=== PATIENT | male | born 1975 | race Caucasian/White ===

== ENCOUNTER 2024-08-06 16:20 | Emergency (ER) | payer OTHER, MEDICAID ==
[~2024-08-06] VITALS: Ht 177.8 cm; Wt 95.3 kg
[2024-08-06 16:22] VITALS: BP_SYST 129; PULSE 97; RESP 16; TEMP 97.8; O2SAT 97
[2024-08-06 16:30] VITALS: TEMP 97.8
[2024-08-06] MEDS: KETOROLAC TROMETHAMINE 30 MG VIAL IM ONE (17:30)
[2024-08-06] MEDS ORDERED: DICL75TA5 PO (19:09)
[2024-08-06] MEDS ORDERED: LIDO1ADH22 TP (19:10)
[2024-08-06 19:17] VITALS: BP_SYST 130; PULSE 90; RESP 16; O2SAT 97
== END 2024-08-06 19:16 | disposition home or self-care (01) ==
LOC: SED 16:20
DX: S30.0XXA Contusion of lower back and pelvis, initial encounter (principal); S80.02XA Contusion of left knee, initial encounter; S80.01XA Contusion of right knee, initial encounter; V89.2XXA Person injured in unspecified motor-vehicle accident, traffic, initial encounter; Y93.89 Activity, other specified; Y92.89 Other specified places as the place of occurrence of the external cause; Y99.8 Other external cause status
CPT/HCPCS: 99284; 72100; 73564; 96372; J1885